=== PATIENT | male | born 1970 | race Two or more races ===

== ENCOUNTER 2017-10-30 10:38 | Emergency (ER) | payer SELFPAY ==
[~2017-10-30] VITALS: Ht 180.3 cm; Wt 104.3 kg
[~2017-10-30 10:38] MED LIST: NO REPORTED MEDS
--- NOTE | 2017-10-30 11:16 | NUR ---
BREAD PAN GREASER AT BEDSIDE FOR BLOOD DRAW.
[2017-10-30 11:19] LABS: BASOPHILS % (AUTO) 0.1 % (0.0-2.0); EOSINOPHILS % (AUTO) 0.3 % (0.0-6.0); HEMATOCRIT 39 % (39-51); HEMOGLOBIN 13.6 g/dL (13.5-17.5); LYMPHOCYTES # (AUTO) 0.7 /CMM (0.8-4.8); MEAN CORPUSCULAR HGB CONC 35 g/dl (31.0-36.0); MEAN CORPUSCULAR VOLUME 88 fL (80-96); MONOCYTES # (AUTO) 0.3 /CMM (0.1-1.30); MONOCYTES % (AUTO) 3.5 % (2.0-12.0); NEUTROPHILS # (AUTO) 7.7 /CMM (1.8-8.9); NEUTROPHILS % (AUTO) 88.1 % (43.0-81.0); PLATELET COUNT (AUTO) 195 /CMM (150-450); RDW COEFFICIENT OF VARIATION 12.8 (11.5-15.0); RED BLOOD CELL COUNT(AUTO) 4.49 MIL/uL (4.5-6.0); WHITE BLOOD COUNT (AUTO) 8.7 K/uL (4.3-11.0)
[2017-10-30] MEDS ORDERED: MAG HYDROX/AL HYDROX/SIMETH 30 ML UDC ONE (11:22)
[2017-10-30 11:26] LABS: CALCIUM, SERUM 9.1 mg/dL (8.5-10.1); CARBON DIOXIDE 27 mmol/L (21-32); CHLORIDE 105 mmol/L (98-107); CREATININE 1.1 mg/dL (0.6-1.3); GLUCOSE 141 mg/dL (74-106); POTASSIUM 3.7 mmol/L (3.5-5.1); SODIUM SERUM 140 mmol/L (136-145); UREA NITROGEN, BLOOD 17 mg/dL (7-18)
[2017-10-30] MEDS ORDERED: MAG HYDROX/AL HYDROX/SIMETH 30 ML UDC PO ONE (11:30)
[2017-10-30 11:32] LABS: ALANINE AMINOTRANSFERASE 32 U/L (12-78); ALBUMIN 3.8 g/dL (3.4-5.0); ALKALINE PHOSPHATASE 60 U/L (46-116); ASPARTATE AMINOTRANSFERASE 22 U/L (15-37); BILIRUBIN,DIRECT 0.1 mg/dL (0.0-0.2); BILIRUBIN,TOTAL 0.5 mg/dL (0.2-1.0); LIPASE 121 U/L (73-393); TOTAL PROTEIN, SERUM 6.9 g/dL (6.4-8.2)
[2017-10-30 11:34] LABS: TROPONIN I < 0.017 ng/mL (0.00-0.056)
[2017-10-30] MEDS ORDERED: KETOROLAC TROMETHAMINE INJ 60 MG/2 ML VIAL IM ONE ×2 (12:30→12:35)
--- NOTE | 2017-10-30 13:09 | NUR ---
Patient discharged to home in stable condition. Written and verbal after care instructions given. Patient verbalizes understanding of instruction.
[2017-10-30 13:11] VITALS: BP 116/62
== END 2017-10-30 13:12 | disposition home or self-care (01) ==
LOC: ER 10:41
DX: R11.2 Nausea with vomiting, unspecified (principal); K08.89 Other specified disorders of teeth and supporting structures
CPT/HCPCS: 36415; 71045; 80048; 80076; 83690; 84484; 85025; 93005; 96372; 99285; A4606; J1885; Z7610

== ENCOUNTER 2019-01-20 19:47 | Emergency (ER) | payer SELFPAY ==
[~2019-01-20] VITALS: Ht 190.5 cm; Wt 112.0 kg
[2019-01-20] MEDS ORDERED: ACETAMINOPHEN ES 500 MG TABLET ONE (20:29)
[2019-01-20] MEDS ORDERED: ACETAMINOPHEN 325 MG TABLET PO ONE (20:30)
[2019-01-20 20:33] LABS: BASOPHILS % (AUTO) 0.6 % (0.0-2.0); EOSINOPHILS % (AUTO) 1.3 % (0.0-6.0); HEMATOCRIT 38 % (39-51); HEMOGLOBIN 13.3 g/dL (13.5-17.5); LYMPHOCYTES # (AUTO) 1.4 /CMM (0.8-4.8); MEAN CORPUSCULAR HGB CONC 35 g/dl (31.0-36.0); MEAN CORPUSCULAR VOLUME 90 fL (80-96); MONOCYTES # (AUTO) 0.4 /CMM (0.1-1.30); MONOCYTES % (AUTO) 8.4 % (2.0-12.0); NEUTROPHILS # (AUTO) 2.7 /CMM (1.8-8.9); NEUTROPHILS % (AUTO) 58.7 % (43.0-81.0); PLATELET COUNT (AUTO) 196 /CMM (150-450); RED BLOOD CELL COUNT(AUTO) 4.24 MIL/uL (4.5-6.0); WHITE BLOOD COUNT (AUTO) 4.6 K/uL (4.3-11.0)
[2019-01-20 20:53] LABS: CARBON DIOXIDE 27 mmol/L (21-32); CHLORIDE 104 mmol/L (98-107); GLUCOSE 109 mg/dL (74-106); SODIUM SERUM 140 mmol/L (136-145); UREA NITROGEN, BLOOD 17 mg/dL (7-18)
[2019-01-20 21:02] LABS: ALANINE AMINOTRANSFERASE 32 U/L (12-78); ALBUMIN 3.9 g/dL (3.4-5.0); ALKALINE PHOSPHATASE 66 U/L (46-116); ASPARTATE AMINOTRANSFERASE 23 U/L (15-37); BILIRUBIN,DIRECT 0.1 mg/dL (0.0-0.2); BILIRUBIN,TOTAL 0.3 mg/dL (0.2-1.0)
--- NOTE | 2019-01-20 23:19 | NUR ---
Patient discharged to home in stable condition. Written and verbal after care instructions given. Patient verbalizes understanding of instruction. ambulatory with a steady gait noted. pt aaox4 no acute distress noted, resp even and unlabored.
[2019-01-20 23:22] VITALS: BP 132/63
== END 2019-01-20 23:23 | disposition home or self-care (01) ==
LOC: ER 19:51
DX: R07.89 Other chest pain (principal)
CPT/HCPCS: 36415; 71045-TC; 80048-TC; 80076-TC; 84484-TC; 85025-TC

== ENCOUNTER → 2020-05-11 | Emergency (ER) | payer MEDICAID ==
--- NOTE | 2020-05-11 12:08 | NUR ---
PT CALLED TO TRIAGE, PT NOT IN WAITING ROOM
== END | disposition left against medical advice (07) ==
LOC: ER 12:02
DX: Z53.21 Procedure and treatment not carried out due to patient leaving prior to being seen by health care provider (principal)

== ENCOUNTER 2020-06-23 16:02 | Emergency (ER) | payer MEDICAID ==
[~2020-06-23] VITALS: Ht 190.5 cm; Wt 117.0 kg
--- NOTE | 2020-06-23 16:17 | NUR ---
BIBS FOR SOB WITH DEEP BREATH x 1 MONTH, ON AND OFF. L SIDED CHEST PAIN RADIATING TO BACK, x 1WEEK, WORSE SINCE MORNING. TO ER BED 8, HOOKED TO CLINICAL DATA PROGRAMMER, BP CUFF AND POX. CHANGED TO HOSP GOWN, WARM BLANET PROVIDED, PATIENT AAO x 4. AWAITING MD BLANCO
--- NOTE | 2020-06-23 16:33 | NUR ---
DR PALACIOS AT BEDSIDE FOR EVAL
[2020-06-23 17:21] LABS: CALCIUM, SERUM 9.3 mg/dL (8.5-10.1); CARBON DIOXIDE 31 mmol/L (21-32); CHLORIDE 102 mmol/L (98-107); CREATININE 0.9 mg/dL (0.6-1.3); GLUCOSE 105 mg/dL (74-106); SODIUM SERUM 140 mmol/L (136-145); UREA NITROGEN, BLOOD 19 mg/dL (7-18)
[2020-06-23 17:26] LABS: ALANINE AMINOTRANSFERASE 63 U/L (12-78); ALBUMIN 4.1 g/dL (3.4-5.0); ALKALINE PHOSPHATASE 70 U/L (46-116); ASPARTATE AMINOTRANSFERASE 27 U/L (15-37); BASOPHILS # (AUTO) 0.1 /CMM (0.0-0.2); BASOPHILS % (AUTO) 1.5 % (0.0-2.0); BILIRUBIN,TOTAL 0.3 mg/dL (0.2-1.0); HEMATOCRIT 42 % (39-51); LYMPHOCYTES # (AUTO) 1.6 /CMM (0.8-4.8); MEAN CORPUSCULAR HGB CONC 34 g/dl (31.0-36.0); MEAN CORPUSCULAR VOLUME 90 fL (80-96); MONOCYTES # (AUTO) 0.4 /CMM (0.1-1.30); MONOCYTES % (AUTO) 8.6 % (2.0-12.0); NEUTROPHILS # (AUTO) 2.9 /CMM (1.8-8.9); NEUTROPHILS % (AUTO) 56.9 % (43.0-81.0); PLATELET COUNT (AUTO) 183 /CMM (150-450); RED BLOOD CELL COUNT(AUTO) 4.64 MIL/uL (4.5-6.0); TOTAL PROTEIN, SERUM 7.3 g/dL (6.4-8.2); WHITE BLOOD COUNT (AUTO) 5.1 K/uL (4.3-11.0)
--- NOTE | 2020-06-23 18:23 | NUR ---
COVID SWAB DONE AND SENT. Patient ambulatory with steady gait. 99% spo2 on room air, denies sob. No distress noted. IV removed. Catheter intact and site benign. Pressure and 4x4 applied to site. No bleeding noted.Patient discharged to home in stable condition. Written and verbal after care instructions given. Patient verbalizes understanding of instruction.
[2020-06-23 18:24] VITALS: BP 127/75
== END 2020-06-23 18:36 | disposition home or self-care (01) ==
LOC: ER 16:05
DX: R07.9 Chest pain, unspecified (principal); E78.00 Pure hypercholesterolemia, unspecified; Z79.899 Other long term (current) drug therapy; Z20.822 Contact with and (suspected) exposure to COVID-19
CPT/HCPCS: 36415; 71045; 80048; 80076; 84484; 85025; 85378; 93005; 99285; C9803; U0003

== ENCOUNTER 2022-01-03 15:17 | Emergency (ER) | payer MEDICAID ==
[~2022-01-03] VITALS: Ht 190.5 cm; Wt 110.7 kg
--- NOTE | 2022-01-03 15:30 | NUR ---
DR ABAD AT BEDSIDE
[2022-01-03 15:53] LABS: BASOPHILS % (AUTO) 0.3 % (0.0-2.0); EOSINOPHILS % (AUTO) 0.5 % (0.0-6.0); HEMATOCRIT 39 % (39-51); HEMOGLOBIN 13.6 g/dL (13.5-17.5); LYMPHOCYTES # (AUTO) 0.6 K/uL (0.8-4.8); LYMPHOCYTES % (AUTO) 7.5 % (20.0-44.0); MEAN CORPUSCULAR HGB CONC 35 g/dl (31.0-36.0); MEAN CORPUSCULAR VOLUME 89 fL (80-96); MONOCYTES # (AUTO) 0.7 K/uL (0.1-1.30); MONOCYTES % (AUTO) 9.5 % (2.0-12.0); NEUTROPHILS # (AUTO) 6.3 K/uL (1.8-8.9); NEUTROPHILS % (AUTO) 82.2 % (43.0-81.0); PLATELET COUNT (AUTO) 180 K/uL (150-450); WHITE BLOOD COUNT (AUTO) 7.7 K/uL (4.3-11.0)
[2022-01-03] MEDS ORDERED: ASPIRIN EC 325 MG TABLET.DR PO ONE ×2 (16:00→16:05)
[2022-01-03 16:10] LABS: CALCIUM, SERUM 8.7 mg/dL (8.5-10.1); CARBON DIOXIDE 28 mmol/L (21-32); CHLORIDE 102 mmol/L (98-107); GLUCOSE 111 mg/dL (74-106); POTASSIUM 3.5 mmol/L (3.5-5.1); SODIUM SERUM 138 mmol/L (136-145); UREA NITROGEN, BLOOD 11 mg/dL (7-18)
--- NOTE | 2022-01-03 16:17 | NUR ---
MEDICATION GIVEN PO ABLE TO SWALLOW WELL AND MAKE NEEDS KNOWN
--- NOTE | 2022-01-03 18:20 | NUR ---
PT AMBULATING ON OWN STEADY GAIT, VOID X2 NORMAL YELLOW NO FOUL ODOR NOTED AT THIS TIME
--- NOTE | 2022-01-03 19:21 | NUR ---
PIETER COLLECTED AND SENT
--- NOTE | 2022-01-03 20:13 | NUR ---
IV removed. Catheter intact and site benign. Pressure and 4x4 applied to site. No bleeding noted.Patient discharged to home in stable condition. Written and verbal after care instructions given. Patient verbalizes understanding of instruction.
[2022-01-03 20:38] VITALS: BP 124/71
== END 2022-01-03 20:39 | disposition home or self-care (01) ==
LOC: ER 15:23
DX: U07.1 COVID-19 (principal); R07.9 Chest pain, unspecified
CPT/HCPCS: 99285; 71045; 87426; 93005; 85025; 80048; 36415; 84484 ×3; C9803

== ENCOUNTER 2023-10-09 20:05 | Emergency (ER) | payer MEDICAID ==
[2023-10-10] MEDS ORDERED: IV NS 0.9% 250 ML IV ONE (08:53)
[2023-10-10] MEDS ORDERED: CT SWABBABLE VALVE TRANS SET 1 EA INFUS.SET MC ONE (08:53)
[2023-10-10] MEDS ORDERED: IOHEXOL-350 100 ML VIAL IV ONE (08:53)
[2023-10-10] MEDS ORDERED: MECL-159 PO (10:28)
== END 2023-10-09 21:25 | disposition left against medical advice (07) ==
LOC: ER 20:08
DX: R51.9 Headache, unspecified (principal); R11.0 Nausea; Z53.21 Procedure and treatment not carried out due to patient leaving prior to being seen by health care provider
CPT/HCPCS: J7050; Q9967

== ENCOUNTER 2023-10-10 07:37 | Emergency (ER) | payer MEDICAID ==
[~2023-10-10] VITALS: Ht 188 cm; Wt 112.0 kg
[2023-10-10] MEDS: IV NS 0.9% 1,000 ML BAG IV ONE (08:14)
[2023-10-10] MEDS ORDERED: MECLIZINE HCL 25 MG TABLET ONE (08:15)
[2023-10-10] MEDS: MECLIZINE HCL 12.5 MG TABLET PO ONE (08:16)
[2023-10-10 08:25] LABS: BASOPHILS # (AUTO) 0.1 K/uL (0.0-0.2); BASOPHILS % (AUTO) 1.3 % (0.0-2.0); EOSINOPHILS # (AUTO) 0.1 K/uL (0.0-0.7); EOSINOPHILS % (AUTO) 1.8 % (0.0-6.0); HEMATOCRIT 40 % (39-51); HEMOGLOBIN 13.7 g/dL (13.5-17.5); LYMPHOCYTES # (AUTO) 1.3 K/uL (0.8-4.8); LYMPHOCYTES % (AUTO) 29.6 % (20.0-44.0); MEAN CORPUSCULAR HEMOGLOBIN 31 PG (26.0-33.0); MEAN CORPUSCULAR HGB CONC 34 g/dl (31.0-36.0); MEAN CORPUSCULAR VOLUME 90 fL (80-96); MONOCYTES # (AUTO) 0.3 K/uL (0.1-1.30); MONOCYTES % (AUTO) 6.7 % (2.0-12.0); NEUTROPHILS # (AUTO) 2.7 K/uL (1.8-8.9); NEUTROPHILS % (AUTO) 60.6 % (43.0-81.0); PLATELET COUNT (AUTO) 192 K/uL (150-450); RED BLOOD CELL COUNT(AUTO) 4.45 MIL/uL (4.5-6.0); RED CELL DISTRIBUTION WIDTH 13.6 % (11.5-15.0); WHITE BLOOD COUNT (AUTO) 4.4 K/uL (4.3-11.0)
[2023-10-10 08:36] LABS: CARBON DIOXIDE 28 mmol/L (21-32); CHLORIDE 102 mmol/L (98-107); CREATININE 0.9 mg/dL (0.6-1.3); GLUCOSE 123 mg/dL (74-106); POTASSIUM 4.1 mmol/L (3.5-5.1); SODIUM SERUM 137 mmol/L (136-145); UREA NITROGEN, BLOOD 14 mg/dL (7-18)
[2023-10-10] MEDS ORDERED: MECL-159 PO (10:28)
[2023-10-10 10:38] VITALS: BP 131/80; TEMP 98; O2SAT 99
== END 2023-10-10 10:42 | disposition home or self-care (01) ==
LOC: ER 07:51
DX: R42 Dizziness and giddiness (principal); R11.0 Nausea; R51.9 Headache, unspecified
CPT/HCPCS: 99285; 70498; 96360; 71045; 93005; 70496; 85025; 80048; 36415; 84484; 82962; 70450; J8597; J7030; J7050; Q9967